=== PATIENT | female | born 1945 | race Caucasian/White ===

== ENCOUNTER 2016-06-07 09:55 | Emergency (ER) | payer MEDICARE ==
[~2016-06-07] VITALS: Ht 167.6 cm; Wt 90.5 kg
[2016-06-07 09:56] VITALS: BP 215/177; PULSE 104; RESP 16; TEMP 97.8; O2SAT 99
[2016-06-07 11:20] VITALS: BP 190/95; PULSE 95; RESP 16; O2SAT 99
[2016-06-07] MEDS ORDERED: IBUP800T23 PO (11:27)
--- NOTE | 2016-06-07 11:29 | PD ---
HPI . b/l knee pain. Thinks she has RA Chief Complaint: Pain: Acute or Chronic Time Seen by Provider: 11:15 Travel History International Travel<30 days: No Contact w/Intl Traveler<30days: No Traveled to known affect area: No History of Present Illness HPI 71-year-old female with no known medical history, who thinks she has rheumatoid arthritis here for complaints of bilateral knee pain for several weeks. Patient says she went to an urgent care and she was given a Medrol Dosepack and told to take Aleve. She says initially the Medrol Dosepak was helping her, however when she got to the last 3 days her pain returned. She tells me she is very anxious and does not like hospitals more doctors. She denies any history of high blood pressure, but states her blood pressures always elevated when she is around physicians. She admits to bilateral knee pain, but is able to walk without any assistance. She tells me she lives in [place] and will be unable to see her primary care physician for 3 weeks. She is requesting pain medications or something stronger for her pain. She denies any trauma or recent falls. PFSH Past Medical History Arthritis: Yes Cardiovascular Problems: Yes Tetanus Vaccination: > 5 Years Influenza Vaccination: No Past Surgical History Surgical History: No Previous Surgery Social History Alcohol Use: No Tobacco Use: Yes (6 cigarettes daily ) Substance Use: No Allergies-Medications (Allergen,Severity, Reaction): Coded Allergies: No Known Allergies (Unverified , 06/07/16) Reported Meds & Prescriptions Reported Meds & Active Scripts Active Ibuprofen 800 Mg Tab 800 Mg PO TID Review of Systems General / Constitutional: No: Fever Eyes: No: Visual changes HENT: No: Headaches Cardiovascular: No: Chest Pain or Discomfort Respiratory: No: Shortness of Breath Gastrointestinal: No: Abdominal Pain Genitourinary: No: Dysuria Musculoskeletal: Positive: Pain (b/l knee pain) Skin: No Rash Neurologic: No: Weakness Psychiatric: Positive: Anxiety, No: Depression Endocrine: No: Polydipsia Hematologic/Lymphatic: No: Easy Bruising Physical Exam Narrative GENERAL: AAO x 3, very anxious, Well-nourished, well-developed patient. SKIN: Warm and dry. No visible rashes or bruising. HEAD: Normocephalic and atraumatic. EYES: No scleral icterus. No injection or drainage. ENT: No nasal drainage noted. Airway patent. NECK: Supple, trachea midline. No JVD. CARDIOVASCULAR: Regular rate and rhythm without murmurs, gallops, or rubs. RESPIRATORY: Breath sounds equal bilaterally. No accessory muscle use. No rhonchi or rales. GASTROINTESTINAL: Abdomen soft, non-tender, nondistended. EXTREMITIES: No cyanosis or edema. Full range of motion bilateral knees. No joint instability. Crepitus noted in bilateral knees. BACK: Nontender without obvious deformity. No CVA tenderness. PSYCH: AAO x 3, very anxious in the exam room. Data Data Last Documented VS Vital Signs Date Time Temp Pulse Resp B/P Pulse Ox O2 Delivery O2 Flow Rate FiO2 06/07/16 11:42 87 16 177/84 99 06/07/16 11:20 Room Air 06/07/16 09:56 97.8 MDM Medical Decision Making Medical Screen Exam Complete: Yes Emergency Medical Condition: Yes Medical Record Reviewed: Yes (none on file) Differential Diagnosis OA, RA, knee sprain Narrative Course 71-year-old female with no known medical history, who thinks she has rheumatoid arthritis here for complaints of bilateral knee pain for several weeks. Patient says she went to an urgent care and she was given a Medrol Dosepack and told to take Aleve. She says initially the Medrol Dosepak was helping her, however when she got to the last 3 days her pain returned. She tells me she is very anxious and does not like hospitals more doctors. She denies any history of high blood pressure, but states her blood pressures always elevated when she is around physicians. She admits to bilateral knee pain, but is able to walk without any assistance. She tells me she lives in [place] and will be unable to see her primary care physician for 3 weeks. She is requesting pain medications or something stronger for her pain. She denies any trauma or recent falls. bp recheck 190/95 Diagnosis Primary Impression: Knee pain, bilateral Qualified Code: M25.561 - Chronic pain of both knees Additional Impressions: Elevated blood pressure reading without diagnosis of hypertension OA (osteoarthritis) of knee Qualified Code: M17.0 - Osteoarthritis of both knees, unspecified osteoarthritis type Patient Instructions: General Instructions, Hypertension (ED), Knee Pain (ED) Additional Instructions: Use medications as prescribed. Follow up with your primary care doctor for further workup of your knee pain as we discussed. You will have to do further testing to figure out whether or not you have rheumatoid arthritis. Med/Other Pt SpecificInfo: Prescription(s) given Scripts Ibuprofen 800 Mg Etx597 Mg PO TID #90 TAB Ref 0 Prov:Cyndi Guillen 06/07/16 Disposition: 01 DISCHARGE HOME Condition: Stable Cyndi Guillen Jun 07, 2016 11:29
[2016-06-07 11:42] VITALS: BP 177/84
== END 2016-06-07 11:44 | disposition home or self-care (01) ==
LOC: NEPB 09:55
DX: M25.562 Pain in left knee (principal); M25.561 Pain in right knee; G89.29 Other chronic pain; R03.0 Elevated blood-pressure reading, without diagnosis of hypertension; M17.0 Bilateral primary osteoarthritis of knee
CPT/HCPCS: 99283